=== PATIENT | male | born 1990 | race Caucasian/White ===

== ENCOUNTER 2017-01-08 10:56 | Emergency (ER) | payer BC, MEDICAID ==
[2017-01-08 11:47] LABS: RAPID STREP SCREEN REAGENT QC YELLOW (YELLOW)
--- NOTE | 2017-01-08 12:56 | ED Physician Documentation ---
History of Present Illness - Stated complaint Stated Complaint: COUGH,SORE THROAT - Chief complaint Chief Complaint: Resp - History obtained from History obtained from: Patient (pt is here for 3 weeks of sinus congestion, sore throat, and a cough, no fevers, no rashes,) Review of Systems Constitutional: denies: Fever, Chills Ears: reports: Ear pain Nose: reports: Congestion, Sinus pressure / pain. denies: Rhinorrhea / runny nose Throat: reports: Sore throat. denies: Oral lesions / sores, Swollen tonsils Cardiac: denies: Chest pain / pressure Respiratory: reports: Cough. denies: Dyspnea, Hemoptysis, Wheezing GI: denies: Nausea, Vomiting, Constipation, Diarrhea : denies: Dysuria Skin: denies: Rash, Lesions Musculoskeletal: denies: Neck pain Neurologic: denies: Headache PD PAST MEDICAL HISTORY - Past Medical History Cardiovascular: Hypertension - Past Surgical History Past Surgical History: No - Present Medications Home Medications: Ambulatory Orders Medication Instructions Recorded Confirmed Lisinopril 20 mg PO DAILY 07/10/14 01/08/17 hydroCHLOROthiazide 25 mg PO DAILY 07/10/14 01/08/17 [Hydrochlorothiazide] Fluticasone [Flonase] 1 sprays MAYANK BID #1 bottle 01/08/17 Loratadine [Claritin] 10 mg PO DAILY #20 tablet 01/08/17 - Allergies Allergies/Adverse Reactions: Allergies Allergy/AdvReac Type Severity Reaction Status Date / Time No Known Drug Allergies Allergy Verified 01/08/17 11:22 - Social History Does the pt smoke?: No Smoking Status: Never smoker Does the pt drink ETOH?: No Does the pt have substance abuse?: No - Immunizations Immunizations are current?: Yes - POLST Patient has POLST: No PD ED PE NORMAL - Vitals Vital signs reviewed: Yes - General General: Alert and oriented X 3 - HEENT HEENT: Atraumatic, Moist mucous membranes, Pharynx benign. No: Ears normal (TM' s obscured by wax) - Neck Neck: Supple, no meningeal sign, No adenopathy - Cardiac Cardiac: RRR, No murmur - Respiratory Respiratory: No respiratory distress - Abdomen Abdomen: Soft, Non tender - Derm Derm: Normal color, Warm and dry, No rash - Extremities Extremities: No deformity - Neuro Neuro: Alert and oriented X 3 - Psych Psych: Normal mood, Normal affect Results - Vitals Vitals: Vital Signs - 24 hr 01/08/17 11:18 Temperature 36.7 C Heart Rate 73 Respiratory 18 Rate Blood Pressure 135/86 H O2 Saturation 95 Oxygen O2 Source Room air - Labs Labs: Laboratory Tests 01/08/17 11:26 Group A Strep Rapid Negative PD MEDICAL DECISION MAKING - ED course Complexity details: d/w patient ED course: rapid strep neg. pt is non-toxic. has had 3 weeks of sx and has not tried anything. suspect URI vs allergies vs sinusitis. will start on calritin. gave return precautions. Departure - Departure Disposition: 01 Home, Self Care Clinical Impression: Upper respiratory infection, viral Condition: Good Instructions: ED URI Viral Follow-Up: primary,care provider [Other] Prescriptions: Fluticasone [Flonase] 1 sprays MAYANK BID #1 bottle Loratadine [Claritin] 10 mg PO DAILY #20 tablet Comments: take the medications as directed. Return to the ER for any new or worsening symptoms.
[2017-01-08 13:04] VITALS: BP 153/100
== END 2017-01-08 13:05 | disposition home or self-care (01) ==
LOC: ED 10:56
DX: J06.9 Acute upper respiratory infection, unspecified (principal); B97.89 Other viral agents as the cause of diseases classified elsewhere; I10 Essential (primary) hypertension
CPT/HCPCS: 87070; 87430; 99283